=== PATIENT | female | born 1960 | race Caucasian/White ===

== ENCOUNTER 2018-10-17 05:46 | Day surgery (SDC) | payer OTHER ==
[2018-10-16 15:42] VITALS: Ht 167.6 cm; Wt 58.0 kg
[2018-10-17] VITALS (15 sets, daily range): BP systolic 117–142; BP diastolic 60–94; PULSE 70–88; RESP 13–22
[~2018-10-17] VITALS: Ht 167.6 cm; Wt 58.0 kg
[~2018-10-17 05:46] MED LIST: CYCL10TA7 PO; GABA-526 PO; OXYC-282 PO; [UNRECOGNIZED DRUG - REMARK]
[2018-10-17] MEDS ORDERED: BUPIVACAINE 0.5% (SDV) 30 ML INJ ONE (06:35)
[2018-10-17] MEDS ORDERED: LIDOCAINE 1% (MPF) 30 ML INJ ONE (06:35)
[2018-10-17] MEDS ORDERED: DEXAMETHASONE 4 MG/ML 1 ML INJ ONE (06:36)
[2018-10-17] MEDS ORDERED: FENTAnyl 50 MCG/ML VIAL ONE (07:51)
[2018-10-17] MEDS ORDERED: MEPERIDINE 25 MG INJ IV PRN (08:00)
[2018-10-17] MEDS ORDERED: METOCLOPRAMIDE 10 MG INJ IV PRN (08:00)
[2018-10-17] MEDS ORDERED: HYDROmorphONE 1 MG/5 ML IV SYRINGE IV PRN ×2 (08:00)
[2018-10-17] MEDS ORDERED: ALBUTEROL 0.083% (NEB) 2.5 MG/3 ML AMP HHN PRN (08:00)
[2018-10-17] MEDS ORDERED: FENTAnyl 50 MCG/ML VIAL IV PRN ×2 (08:00)
[2018-10-17] MEDS ORDERED: DIPHENHYDRAMINE 50 MG INJ IV PRN (08:00)
[2018-10-17] MEDS ORDERED: ONDANSETRON 4 MG INJ IV PRN (08:00)
[2018-10-17] MEDS ORDERED: SUGAMMADEX SODIUM 200 MG/2 ML VIAL IV ONE (08:31)
[2018-10-17] MEDS ORDERED: ROCURONIUM 50 MG INJ ONE (08:37)
[2018-10-17] MEDS ORDERED: LIDOCAINE 100 MG SYRINGE ONE (08:37)
[2018-10-17] MEDS ORDERED: CLINDAMYCIN 600 MG/D5W (PMX) 50 ML IVPB ONE (08:37)
[2018-10-17] MEDS ORDERED: SUCCINYLCHOLINE CHLORIDE 100 MG/5 ML SYG IV ONE (08:37)
[2018-10-17] MEDS ORDERED: PROPOFOL 20 ML ONE (08:37)
[2018-10-17] MEDS ORDERED: HYDROCODONE/APAP (10/325) TAB PO ONE (10:30)
== END 2018-10-17 11:40 | disposition home or self-care (01) ==
LOC: SDS 05:46
PROVIDERS: ATTEND Podiatrist
DX: M21.611 Bunion of right foot (principal)
CPT/HCPCS: 28296; C1713; J1100; J1170; J2001; J2175; J2405; J3010; Z7512; Z7610; 88304; 88311